=== PATIENT | male | born 1955 | race African-American/Black ===

== ENCOUNTER 2025-04-15 19:02 | Emergency (ER) | payer SELFPAY ==
[~2025-04-15] VITALS: Ht 170.2 cm; Wt 120.0 kg
[2025-04-15 19:10] VITALS: BP 167/98; PULSE 109; RESP 16; TEMP 36.9; O2SAT 100
[2025-04-15] MEDS ORDERED: VALA100044 MT (20:02)
== END 2025-04-15 20:52 | disposition home or self-care (01) ==
LOC: ER 19:02
DX: B02.9 Zoster without complications (principal); E11.9 Type 2 diabetes mellitus without complications; I10 Essential (primary) hypertension; Z88.0 Allergy status to penicillin
CPT/HCPCS: 99283